=== PATIENT | male | born 1970 | race Caucasian/White ===

== ENCOUNTER → 2024-12-23 09:08 | Outpatient (REF) | payer BC, SELFPAY | LOC: HWCARD 09:08 | DX: F90.9 Attention-deficit hyperactivity disorder, unspecified type (principal) | CPT/HCPCS: 93005 ==

== ENCOUNTER 2025-06-15 05:54 | Emergency (ER) | payer BC, SELFPAY ==
[2025-06-15 05:56] VITALS: BP 154/100
[2025-06-15 06:08] VITALS: BMI 30.7
[2025-06-15 06:10] VITALS: BP 132/89
--- NOTE | 2025-06-15 06:44 | ED.GENMED ---
History of Present Illness
General
Chief Complaint: Medication Reaction
Source: patient
Exam Limitations: none
Time Seen by Provider: 06/15/25 06:07
Nursing documentation reviewed up to this point in time: agreed with
History of Present Illness
History of Present Illness:
Patient is a 55-year-old male who presents to the ER for evaluation. He reports he has been on Clomid for years for low testosterone prescribed by urology Dr. Altman here in the ER. He has been trying to wean himself off of this medication
because he has had issues such as bloating and crazy dreams and sleep issues. He started weaning 2 months ago and at that time went to 12.5 mg every 5 days. He completely stopped this June 05 and since then has felt very anxious. He feels
that his anxiety is from weaning off of Clomid.
He tells me he is on ADHD medicine, Adderall and Ativan as needed; nothing else for anxiety. He does not really take the Ativan as needed.
Pt is here with his sister.
Past History
Past History
ED Past Medical History: Other (Kidney stones)
Social History
Tobacco: Non-smoker
Alcohol: None
Family History
Family History: Other (Father with CABG)
Phy Exam
General Physical Exam
General Presentation: no apparent distress
General age: appears stated age
General Skin: warm and dry
General Habitus: normal
General Mental: alert
General Hydration: appears well hydrated
Cardiovascular Exam
Cardiovascular Exam: regular rate/rhythm, no murmur and normal peripheral pulses
Pulmonary Exam
Pulmonary Exam: lungs clear and no respiratory distress
Neurological Exam
Neurological Exam: alert and oriented x3
Musculoskeletal Exam
Musculoskeletal Exam: full ROM
Skin Exam
Skin Exam: normal color and warm/dry
Psychiatric Exam
Psychiatric Exam: anxious
Course
Orders/Labs/Results
Orders:
Orders
06/15/25 07:47
Vital Signs- Treatment ONCE
Frequency: Once
Vital Signs
Initial and Last Documented VS:
Initial Vital Signs
Temp Pulse Resp BP Pulse Ox
98.4 F 89 20 154/100 99
06/15/25 05:56 06/15/25 05:56 06/15/25 05:56 06/15/25 05:56 06/15/25 05:56
Last Documented Vital Signs
Temp Pulse Resp BP Pulse Ox
98.4 F 94 16 131/89 98
06/15/25 05:56 06/15/25 07:58 06/15/25 07:58 06/15/25 07:58 06/15/25 07:00
MDM/Problems Addressed
Differential Diagnosis Includes:
Not limited to anxiety
MDM/Problems Addressed:
As documented patient is a 55-year-old male with history of chronic anxiety low testosterone. He is prescribed Clomid by urology here Dr. Altman however as documented above has weaned himself off and now feeling very anxious. He does have a
prescription for alprazolam however does not like to take it. He presents here awake alert no acute distress. Patient was very anxious here in the ER about his anxiety and feels that this is related to him tapering Clomid. He was very anxious
about his testosterone blowers I did speak with urology and Dr. Altman will send him a prescription for outpatient labs will hold off on starting Clomid at this time .
Patient has no other physical complaints stable vital signs.
Chronic conditions affecting care:
Chronic anxiety low testosterone
*Pulse Oximetry
SaO2: 99
Oxygen Mode of Delivery: Room air
Patient hypoxic: no
*Critical Care Note
Total Time (30-74mins, 75-104mins- exclusive of procedures): Not Applicable
Patient Management
Discussion with other providers: Mold Sprayer (DR Altman )
ED Attending Note
-
Portions of this chart may have been created with voice recognition software.� Occasional wrong word or��sound alike� substitutions may have occurred due to the inherent limitations of voice recognition software.
Discharge Plan
Departure
Patient Disposition: Home (Routine Discharge)
Date of Disposition: 06/15/25
Time of Disposition: 07:46
Patient with high blood pressure during this ER visit?: Yes
Condition: Fair
Covid-19: Not Applicable
Discharge Problem:
Anxiety
Instructions: Anxiety in adults - ED (DC), BLOOD PRESSURE
Prescriptions:
No Action
oxycodone-acetaminophen 5 MG/325 MG tablet
1 tab PO Q4HPRN PRN (Reason: pain) Qty: 15 0RF
tamsulosin 0.4 MG capsule
0.4 mg PO DAILY Qty: 14 0RF
alprazolam 0.25 MG tablet
0.25 mg PO Q8HPRN PRN (Reason: anxiety)
tamsulosin 0.4 MG capsule
0.4 mg PO DAILY Qty: 7 0RF
diclofenac sodium 75 MG tablet,delayed release (DR/EC)
75 mg PO BID Qty: 10 0RF
Referrals:
Yannick Altman MD [Active, Urology]
Activity Restrictions/Additional Instructions:
As discussed please follow-up with Dr. Altman as for reevaluation of your symptoms. You will be getting a prescription for blood work prescribed by Dr. Altman . Please go to your [facility] to have that done.
In addition you may take Ativan as needed.
Return if any worsening of symptoms
Interventions
Interventions:
*Risk Screen - Suicide Last Done: 06/15/25 05:56
*General Assessment Last Done: 06/15/25 05:56
*Neglect/Abuse Screening Last Done: 06/15/25 05:56
*ED- Fall Risk Assessment Last Done: 06/15/25 05:56
*ED COVID-19 Vaccine History Last Done: 06/15/25 05:56
*Nursing Disposition Last Done: 06/15/25 07:59
ED-Skin Assessment Last Done: 06/15/25 06:11
ED- Pulmonary Assessment Last Done: 06/15/25 06:11
ED-EENT Assessment Last Done: 06/15/25 06:11
Discharge Date and Time
Discharge Date/Time: 06/15/25 07:59
Print Language: BULGARIAN
[2025-06-15 07:00] VITALS: BP 135/100
[2025-06-15 07:58] VITALS: BP 131/89
== END 2025-06-15 07:59 | disposition home or self-care (01) ==
LOC: EMR 05:54
PROVIDERS: EMERGENCY PHYSICIAN Emergency Medicine
DX: F41.9 Anxiety disorder, unspecified (principal); F90.9 Attention-deficit hyperactivity disorder, unspecified type; Z79.899 Other long term (current) drug therapy
CPT/HCPCS: 99282